=== PATIENT | male | born 1945 | race Asian ===

== ENCOUNTER 2022-09-28 22:40 | Emergency (ER) | payer OTHER, SELFPAY ==
--- NOTE | ~2022-09-28 | XR_ITS ---
EXAMINATION: XR chest 2V DATE: 09/29/2022 01:29 INDICATION: Weakness. TECHNIQUE: Frontal and lateral views of the chest were obtained. COMPARISON: Chest single view 10/22/2020 FINDINGS: A calcified left lung nodule and calcified mediastinal lymph nodes are consistent with old granulomatous disease. No pleural effusion or pneumothorax. The heart size is normal. IMPRESSION: 1. No acute cardiopulmonary disease. Reviewed, dictated and finalized at location A.
--- NOTE | ~2022-09-28 | CT_ITS ---
EXAMINATION: CT brain wo con DATE: 09/29/2022 01:34 INDICATION: Weakness. Lightheadedness. TECHNIQUE: Computed tomography (CT) of the head was performed without intravenous contrast. The mA wa s adjusted according to patient size. Iterative reconstruction technique was employed. The dose-lengt h product was 605.33 mGy-cm. COMPARISON: None FINDINGS: There is diffuse brain volume loss. There is no intracranial hemorrhage, acute infarction, or abnormal intracranial mass lesion. The ventricles are normal in size. The orbits are normal. There is mild mucosal thickening in the paranasal sinuses. There is gas in many of the veins of the face a nd head, likely from IV injection. There is a left otomastoid effusion. The left mastoid air cells ar e hypoplastic. IMPRESSION: 1. Normal aging brain. 2. Left otomastoid effusion. Reviewed, dictated and finalized at location A.
--- NOTE | 2022-09-28 22:48 | ECG_ITS ---
Measurements Intervals [place] Rate: 57 P: 72 TN: 180 QRS: 17 QRSD: 99 T: 47 QT: 406 QTc: 396 Interpretive Statements SINUS BRADYCARDIA BORDERLINE ECG NO PREVIOUS ECG AVAILABLE FOR COMPARISON Electronically Signed On 09-29-2022 18:03:08 CDT by Jaskaran Grimaldo D.O.
[2022-09-28 22:55] VITALS: BP 145/70; PULSE 56; RESP 17; TEMP 36.4; O2SAT 100
[2022-09-29 01:08] LABS: Basophils Percent Auto 0.3 % (0.2-1.2); Eosinophils Absolute Auto 0.1 K/mm3 (0-0.3); Hematocrit 37.5 % (42.0-52.0); Hemoglobin 12.7 g/dL (14.0-18.0); Immature Granulocyte Absolute 0.02 K/mm3 (0.00-0.031); Immature Granulocyte Percent A 0.2 % (0-0.5); Lymphocytes Absolute Auto 1.73 K/mm3 (0.9-3.2); Lymphocytes Percent Auto 18.8 % (18.3-44.2); Mean Corpuscular HGB Conc 33.9 g/dl (32-36); Mean Corpuscular Hemoglobin 29.9 pg (26-34); Mean Corpuscular Volume 88.2 fl (80-100); Mean Platelet Volume 9.6 fl (7.4-10.4); Monocytes Absolute Auto 0.7 K/mm3 (0.1-0.6); Monocytes Percent Auto 7.8 % (2.6-8.5); Neutrophils Absolute Auto 6.6 K/mm3 (1.3-6.7); Neutrophils Percent Auto 71.9 % (45.5-73.1); Platelet Count Result 188 k/mm3 (150-375); Red Blood Count 4.25 M/mm3 (4.6-6.20); Red Cell Distribution Width 12.1 % (11.5-14.5); White Blood Count 9.2 K/mm3 (4.5-10.0)
[2022-09-29 01:19] LABS: Alanine Aminotransferase 27 U/L (6-50); Albumin Level 4.3 g/dL (3.5-5.1); Alkaline Phosphatase 61 U/L (38-126); Anion Gap 7 mmol/L (8-16); Aspartate Amino Transferase 30 U/L (17-59); Bilirubin,Total 0.4 mg/dL (0.2-1.3); Blood Urea Nitrogen 24 mg/dL (9-20); Calcium 8.3 mg/dL (8.4-10.2); Carbon Dioxide 28 mmol/L (22-30); Chloride 102 mmol/L (98-107); Estimated CRCL calculation 35 ml/min; Estimated Glomerular Filt Rate 49; Glucose 104 mg/dL (65-110); Potassium 4.3 mmol/L (3.4-5.0); Sodium 137 mmol/L (137-145)
[2022-09-29 01:25] LABS: Prothrombin Time 13.2 Seconds (11.1-14.7)
[2022-09-29] MEDS: SODIUM CHLORIDE 0.9% IV 1,000 ML 999 ML IV CONT (01:29)
[2022-09-29 01:30] LABS: Troponin I < 0.012 ng/mL (0.000-0.034)
[2022-09-29 01:33] LABS: Partial Thromboplastin Time 33.3 SECONDS (22.3-36.8)
--- NOTE | 2022-09-29 01:40 | ED.GENADULT ---
HPI - General Adult General Chief complaint: Dizziness Stated complaint: back pain Time Seen by Provider: 09/29/22 00:27 History of Present Illness HPI narrative: Patient is a 77-year-old male who presents ER with lightheadedness. 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 He was working a room when he suddenly felt unsteady and dizzy. He felt full body weakness and opted to come to the ER to be evaluated. No chest pain or chest pressure. No focal lateralizing weakness or numbness. No runny nose or sore throat or productive cough. Mild headache. Patient's daughter present and helping interpret. Patient is [place]. Related Data Home Medications Medication Instructions Recorded Confirmed lisinopril 20 mg tablet mg 09/29/22 pantoprazole 40 mg tablet,delayed mg PO 09/29/22 release Allergies Allergy/AdvReac Type Severity Reaction Status Date / Time No Known Allergies Allergy Verified 09/28/22 22:41 Review of Systems Review of Systems: All systems reviewed & are unremarkable except as noted in HPI and below Constitutional: Constitutional: Denies chills, Reports fatigue, Denies fever(s) and Reports weakness ENT: Denies nasal congestion and Denies sore throat Cardiovascular: Cardiovascular: Denies chest pain, Denies radiating jaw, neck or arm pain and Denies slow heart rate Respiratory: Respiratory: Denies cough and Denies dyspnea Gastrointestinal: Gastrointestinal: Denies abdominal pain, Denies nausea and Denies vomiting Musculoskeletal: Musculoskeletal: Denies back pain and Denies arthralgias Neurologic: Reports dizziness, Reports headache(s), Denies focal weakness and Denies numbness PMF Past Medical History Medical History (Updated 09/29/22 @ 03:56 by Rui Roblero MD) Duodenal ulcer Hypertension Surgical History Surgical History (Updated 09/29/22 @ 01:42 by Rui Roblero MD) History of esophagogastroduodenoscopy (EGD) Exam Narrative: GENERAL: Well-appearing, well-nourished, and in no acute distress. HEAD: Normocephalic, atraumatic. EYES: PERRL and EOMI. ENT: Mucous membranes moist. 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 Small amount of cerumen right ear canal obstructing the TM. Mild discomfort over the left mastoid without swelling or redness or fluctuance. No abnormality of the external ear on the left side. NECK: Supple. CHEST: Clear to auscultation. No respiratory distress. HEART: Regular rate and rhythm. Normal peripheral pulses. ABDOMEN: Soft, nontender, nondistended. EXTREMITIES: Normal range of motion. No edema. SKIN: Warm, dry, no rash. NEURO: No focal deficits. No upper or lower extremity drift. No facial asymmetry. Clear speech without dysarthria. Alert and oriented x3. PSYCH: Normal mood and affect. Course Course Emergency Course: Discussed imaging results with patient and family. Patient reports she has had discomfort behind his left ear for many years. No new change in his discomfort and no new drainage from his ear. There is no redness or change in the external structure of the ear or mastoid on direct inspection. I recommended that they follow-up with ear nose and throat and I provided them with the phone number. Patient will not be started on antibiotics at this time. In regards to patient's weakness and lightheadedness the IV fluids have resolved his symptoms and he would like to be discharged. Labs were reassuring with exception of creatinine being slightly elevated which may indicate dehydration. Vital Signs Vital signs: Vital Signs Temperature 97.6 F 09/28/22 22:55 Pulse Rate 56 L 09/28/22 22:55 Respiratory Rate 17 09/28/22 22:55 Blood Pressure 145/70 H 09/28/22 22:55 Pulse Oximetry 100 09/28/22 22:55 Temperature 97.6 F 09/28/22 22:55 Pulse Rate 67 09/29/22 03:13 Respiratory Rate 19 09/29/22 02:19 Blood Pressure 140/80 09/29/22 02:19 Pulse Oximetry
[2022-09-29 02:13] LABS: Appearance Urine Clear (Clear); Bilirubin Urine Negative (Negative); Blood Urine Negative (Negative); Color Urine Yellow (Yellow); Glucose Urine UA Negative (Negative); Ketones Urine Negative (Negative); Leukocyte Esterase Ur Negative LEU/UL (Negative); Nitrate Urine Negative (Negative); Protein Urine Negative (Negative); Specific Grav Ur 1.024 (1.001-1.035); Urobilinogen Urine 0.2 mg/dL (<2.0)
[2022-09-29 02:14] VITALS: BP 125/70; PULSE 64
[2022-09-29 02:15] VITALS: BP 140/77; PULSE 68
[2022-09-29 02:16] VITALS: BP 140/80; PULSE 68
[2022-09-29 02:19] VITALS: BP 140/80; PULSE 64; RESP 19; O2SAT 100
[2022-09-29 02:28] LABS: Add Urine Microscopic? NO
[2022-09-29 03:13] VITALS: PULSE 67
[2022-09-29 04:11] VITALS: BP 122/69; PULSE 70; RESP 15; O2SAT 100
== END 2022-09-29 04:13 | disposition home or self-care (01) ==
PROVIDERS: Emergency Provider Emergency Medicine; PCP Nurse Practitioner Family
DX: E86.0 Dehydration (principal); H70.12 Chronic mastoiditis, left ear; I10 Essential (primary) hypertension; R00.1 Bradycardia, unspecified
CPT/HCPCS: 36415; 70450; 71046; 80053; 81003; 84484; 85025; 85610; 85730; 93005; 99284; J7030